=== PATIENT | female | born 1970 | race Caucasian/White ===

== ENCOUNTER → 2016-06-29 | Day surgery (SDC) | payer BC ==
[~2016-06-29] MED LIST: LACTATED RINGER'S 1000 ML INJ 1,000 ML ONE; LIDOCAINE 1%/EPINEPHrine 1:100,000 SOLN 20 ML VIAL ONE; MIDAZOLAM HCL 2 MG/2 ML VIAL ONE; ONDANSETRON HCL 4 MG/2 ML VIAL IV PUSH ONE; PROPOFOL 200 MG/20 ML AMP IV ONE; ceFAZolin 2 GM PREMIX 50 ML ONE
--- NOTE | 2016-06-29 15:35 | TN ---
cc: RONAL CHARLES M.D. DATE OF SURGERY: 06/29/2016 PREOPERATIVE DIAGNOSIS Atypical ductal hyperplasia, right breast. POSTOPERATIVE DIAGNOSIS Atypical ductal hyperplasia, right breast. PROCEDURE Right breast needle-localized lumpectomy, hidden scar technique. SURGEON Dr. Ronal Charles SENIOR INVESTMENT ANALYST Sarahy Hammond, MARYAM ANESTHESIA General. INDICATIONS This very pleasant 45-year-old woman was found to have new microcalcifications on mammography. Stereotactic biopsy demonstrated atypical ductal hyperplasia. Recommendation was made for needle-localized lumpectomy. INTRAOPERATIVE FINDINGS Successful removal of area of concern per Dr. Gomez of radiology. ESTIMATED BLOOD LOSS Less than 5 mL. DESCRIPTION OF PROCEDURE IN DETAIL The patient was identified as Mariia Camarena. Following right breast needle localization, she was taken to the operating room and placed in supine position. Sequential compression devices were placed on bilateral lower extremities. Following induction of adequate general anesthesia with TIVA, the patient's right breast was prepped and draped in the usual sterile fashion with Betadine. A timeout procedure was performed. Following completion of the timeout procedure to everyone's satisfaction within the room, a proposed superior periareolar incision was made with a marking pen and infiltrated with local anesthetic. The incision was carried out with a scalpel and hemostasis controlled with electrocautery. Dissection continued superiorly towards the localization needle using a lighted retractor to facilitate the hidden scar technique. The localization needle was identified within the wound and was divided at the level of skin, brought into the wound. A generous portion of tissue was then from surrounding breast tissue using electrocautery. The specimen was marked with a short stitch superior anterior and a long stitch lateral posterior and sent for imaging and then to pathology. The wound was irrigated copiously with saline. Small bleeding points were controlled with electrocautery. Once the wound was assured to be dry 5 cc of local anesthetic was placed within the wound and the wound was closed in two layers with 3-0 Vicryl and 4-0 Monocryl. Dressings were applied with Dermabond, 4x4 and Tegaderm. The patient tolerated the procedure without apparent complication. Sponge, needle and instrument counts were correct at the end of the case. The surgical procedure was assisted by my nurse practitioner. My CATERING DIRECTOR's presence was necessary throughout the case for assistance and visualization of the hidden scar lumpectomy. My CATERING DIRECTOR was assisting me throughout the duration of this procedure. The skill set of a nurse practitioner was medically necessary to complete the procedure. During the surgical case the surgical technologist was working at the back table and providing appropriate instrumentation to myself and the nurse practitioner who was directly assisting me. MD JANUSZ Puentes/ANJELICA /2:09 PM /3:29 PM
== END | disposition home or self-care (01) ==
LOC: ESDC 09:59
PROVIDERS: ATTEND Surgery Trauma Surgery
DX: N60.91 Unspecified benign mammary dysplasia of right breast (principal)
CPT/HCPCS: 00400; 19125; 88307; J0690; J2250; J2405; J3010; J7120; 88361

== ENCOUNTER 2016-11-05 18:15 | Emergency (ER) | payer BC ==
[~2016-11-05] VITALS: Ht 160 cm; Wt 77.0 kg
[2016-11-05 18:17] VITALS: BP 140/74; PULSE 84; RESP 22; TEMP 97.4; O2SAT 98
--- NOTE | 2016-11-05 18:37 | PD ---
Physical Exam Time Seen by Provider: 18:33 Narrative 45yo F c/o R rib cage pain w/ breathing since 2pm today. Denies fever, cough, hemoptysis. Stabbing pain to R side and radiates to back. Pain is constant and worse w/ deep breath Finished radiation for R breast CA October 15, 2016. Patient seen in triage. Awaiting bed placement. VS reviewed. Data Data Last Documented VS Vital Signs Date Time Temp Pulse Resp B/P Pulse Ox O2 Delivery O2 Flow Rate FiO2 11/05/16 18:17 97.4 84 22 140/74 98 MDM Supervised Visit with ONDINA: Robyn Mckenzie November 05, 2016 18:37
== END 2016-11-05 22:40 | disposition left against medical advice (07) ==
LOC: NED 18:15
DX: R07.81 Pleurodynia (principal)
CPT/HCPCS: 99282

== ENCOUNTER 2017-02-11 01:19 | Inpatient (IN) | payer BC ==
[~2017-02-11] VITALS: Ht 157.5 cm; Wt 72.7 kg
[2017-02-11] VITALS (8 sets, daily range): BP systolic 117–171; BP diastolic 57–87; PULSE 73–100; RESP 16–20; TEMP 96.9–99.1; O2SAT 95–100
[2017-02-11] MEDS ORDERED: SODIUM CHLOR 0.9% 1000 ML INJ 1,000 ML IV SCH ×2 (01:49→03:50)
[2017-02-11] MEDS ORDERED: ONDANSETRON HCL 4 MG/2 ML VIAL IVP ONE (02:00)
[2017-02-11] MEDS ORDERED: MORPHINE SULFATE 4 MG/ML INJ IV PUSH ONE (02:00)
[2017-02-11] MEDS ORDERED: SODIUM CHLORIDE 0.9% FLUSH 10 ML FLUSH IV FLUSH PRN ×3 (02:00→19:15)
[2017-02-11] MEDS ORDERED: KETOROLAC TROMETHAMINE 30 MG/ML (IVP) VIAL IVP ONE (02:00)
--- NOTE | 2017-02-11 02:08 | PD ---
HPI Chief Complaint: Abdominal Pain Time Seen by Provider: 01:49 Travel History International Travel<30 days: No Contact w/Intl Traveler<30days: No Traveled to known affect area: No History of Present Illness HPI The patient is a 46-year-old female who presents to the emergency department for 24 hours of abdominal pain. The patient states abdominal pain started left lower quadrant of the abdomen and then radiated to the suprapubic region yesterday. Patient now notes the pain is diffuse, radiates to the back, is worse with certain positional changes such as sitting upright, as well as moving. She denies any nausea, vomiting, diarrhea, or change in bowel habits. She denies any associated dysuria, frequency, urgency, vaginal discharge, or vaginal bleeding. The patient has a previous history of hysterectomy and appendectomy. She denies any history nephrolithiasis or diverticulitis. She denies any associated fever, chills, or sweats. Symptoms are moderate, worse in certain positional changes, but there are no acute alleviating factors. [facility] Past Medical History Medical History: Denies Significant Hx Tetanus Vaccination: Unknown ?: Not Past Surgical History Surgical History: No Previous Surgery Hysterectomy: Yes Social History Alcohol Use: No Tobacco Use: No Substance Use: No Allergies-Medications (Allergen,Severity, Reaction): Coded Allergies: No Known Allergies (Verified , 02/11/17) Reported Meds & Prescriptions Reported Meds & Active Scripts Active Reported Tamoxifen (Tamoxifen Citrate) 10 Mg Tab 10 Mg PO BID Metformin (Metformin HCl) 500 Mg Tab 500 Mg PO DAILY With a meal Atorvastatin (Atorvastatin Calcium) 20 Mg Tab 20 Mg PO HS Review of Systems Except as stated in HPI: all other systems reviewed are Neg General / Constitutional: No: Fever Cardiovascular: No: Chest Pain or Discomfort Respiratory: No: Shortness of Breath Gastrointestinal: Positive: Abdominal Pain, Loss of Appetite, No: Nausea, Vomiting, Diarrhea, Constipation Genitourinary: No: Urgency, Frequency, Dysuria, Hematuria, Discharge, Vaginal Bleeding Skin: No Rash Physical Exam Narrative GENERAL: Awake, alert, pleasant 46 year-old female who appears her stated age and is in no acute respiratory distress. She does appear moderate discomfort. SKIN: Focused skin assessment warm/dry. HEAD: Atraumatic. Normocephalic. EYES: Pupils equal and round. No scleral icterus. No injection or drainage. ENT: No nasal bleeding or discharge. Mucous membranes pink and moist. NECK: Trachea midline. No JVD. CARDIOVASCULAR: Regular rate and rhythm. No murmur appreciated. RESPIRATORY: No accessory muscle use. Clear to auscultation. Breath sounds equal bilaterally. GASTROINTESTINAL: Abdomen soft, tender palpation left lower quadrant and suprapubic region. Back: No CVA tenderness. MUSCULOSKELETAL: No obvious deformities. No clubbing. No cyanosis. No edema. NEUROLOGICAL: Awake and alert. No obvious cranial nerve deficits. Motor grossly within normal limits. Normal speech. PSYCHIATRIC: Appropriate mood and affect; insight and judgment normal. Data Data Last Documented VS Vital Signs Date Time Temp Pulse Resp B/P (MAP) Pulse Ox O2 Delivery O2 Flow Rate FiO2 02/11/17 02:23 73 16 143/63 (89) 98 Room Air 02/11/17 01:21 98.4 Orders Orders Complete Blood Count With Diff (02/11/17 01:49) Comprehensive Metabolic Panel (02/11/17 01:49) Lipase (02/11/17 01:49) Lactic Acid (02/11/17 01:49) Urinalysis - C+S If Indicated (02/11/17 01:49) Ct Abd/Pel W Iv Contrast(Rout) (02/11/17 01:49) Iv Access Insert/Monitor (02/11/17 01:49) Ecg Monitoring (02/11/17 01:49) Oximetry (02/11/17 01:49) Morphine Inj (Morphine Inj) (02/11/17 02:00) Ondansetron Inj (Zofran Inj) (02/11/17 02:00) Sodium Chlor 0.9% 1000 Ml Inj (Ns 1000 M (02/11/17 01:49) Sodium Chloride 0.9% Flush (Ns Flush) (02/11/17 02:00) Ketorolac Inj (Toradol Inj) (02/11/17 02:00) Iohexol 350 Inj (Omnipaque 350 Inj) (02/11/17 02:52) Labs Laboratory Tests Test 02/11/17 02:00 02/11/17 03:00 White Blood Count 12.4 TH/MM3 Red Blood Count 4.19 MIL/MM3 Hemoglobin 12.7 GM/DL Hematocrit 37.7 % Mean Corpuscular Volume 90.0 FL Mean Corpuscular Hemoglobin 30.3 PG Mean Corpuscular Hemoglobin Concent 33.7 % Red Cell Distribution Width 12.9 % Platelet Count 142 TH/MM3 Mean Platelet Volume 7.1 FL Neutrophils (%) (Auto) 68.7 % Lymphocytes (%) (Auto) 13.7 % Monocytes (%) (Auto) 14.3 % Eosinophils (%) (Auto) 2.6 % Basophils (%) (Auto) 0.7 % Neutrophils # (Auto) 8.5 TH/MM3 Lymphocytes # (Auto) 1.7 TH/MM3 Monocytes # (Auto) 1.8 TH/MM3 Eosinophils # (Auto) 0.3 TH/MM3 Basophils # (Auto) 0.1 TH/MM3 CBC Comment DIFF FINAL Differential Comment Blood Urea Nitrogen 16 MG/DL Creatinine 0.76 MG/DL Random Glucose 95 MG/DL Total Protein 7.0 GM/DL Albumin 3.4 GM/DL Calcium Level 8.6 MG/DL Alkaline Phosphatase 34 U/L Aspartate Amino Transf (AST/SGOT) 14 U/L Alanine Aminotransferase (ALT/SGPT) 24 U/L Total Bilirubin 0.7 MG/DL Sodium Level 141 MEQ/L Potassium Level 4.6 MEQ/L Chloride Level 109 MEQ/L Carbon Dioxide Level 27.4 MEQ/L Anion Gap 5 MEQ/L Estimat Glomerular Filtration Rate 82 ML/MIN Lactic Acid Level 0.9 mmol/L Lipase 191 U/L MDM Medical Decision Making Medical Screen Exam Complete: Yes Emergency Medical Condition: Yes Medical Record Reviewed: Yes Interpretation(s) Laboratory Tests Test 02/11/17 02:00 02/11/17 03:00 White Blood Count 12.4 TH/MM3 Red Blood Count 4.19 MIL/MM3 Hemoglobin 12.7 GM/DL Hematocrit 37.7 % Mean Corpuscular Volume 90.0 FL Mean Corpuscular Hemoglobin 30.3 PG Mean Corpuscular Hemoglobin Concent 33.7 % Red Cell Distribution Width 12.9 % Platelet Count 142 TH/MM3 Mean Platelet Volume 7.1 FL Neutrophils (%) (Auto) 68.7 % Lymphocytes (%) (Auto) 13.7 % Monocytes (%) (Auto) 14.3 % Eosinophils (%) (Auto) 2.6 % Basophils (%) (Auto) 0.7 % Neutrophils # (Auto) 8.5 TH/MM3 Lymphocytes # (Auto) 1.7 TH/MM3 Monocytes # (Auto) 1.8 TH/MM3 Eosinophils # (Auto) 0.3 TH/MM3 Basophils # (Auto) 0.1 TH/MM3 CBC Comment DIFF FINAL Differential Comment Blood Urea Nitrogen 16 MG/DL Creatinine 0.76 MG/DL Random Glucose 95 MG/DL Total Protein 7.0 GM/DL Albumin 3.4 GM/DL Calcium Level 8.6 MG/DL Alkaline Phosphatase 34 U/L Aspartate Amino Transf (AST/SGOT) 14 U/L Alanine Aminotransferase (ALT/SGPT) 24 U/L Total Bilirubin 0.7 MG/DL Sodium Level 141 MEQ/L Potassium Level 4.6 MEQ/L Chloride Level 109 MEQ/L Carbon Dioxide Level 27.4 MEQ/L Anion Gap 5 MEQ/L Estimat Glomerular Filtration Rate 82 ML/MIN Lactic Acid Level 0.9 mmol/L Lipase 191 U/L Last Impressions Abdomen/Pelvis CT 02/11/17 0149 Signed Impressions: Service Date/Time: , February 11, 2017 02:48 - CONCLUSION: 1. 5.1 cm solid mass in the central pelvis which is separate from the uterus and ovaries. There is also loculated fluid in the pelvis posterior to this mass as measured above with some free fluid and right ovarian cyst. Reportedly there is a history of metastatic breast carcinoma. Small amount of free fluid also present around the spleen and left paracolic gutter. 2. There is a 7.1 x 5.3 cm area of solid tissue posterior to the bladder which could represent the uterus although there is a history of hysterectomy and this could represent an additional pelvic mass suspicious for neoplasm. 1. Guillermo Del Rio MD Differential Diagnosis Differential diagnosis includes diverticulitis, pancreatitis, nephrolithiasis, pyelonephritis, small bowel obstruction, perforated viscus, gastritis. Narrative Course IV was established, labs are drawn and sent, and the patient was placed on cardiac telemetry monitoring and continuous pulse oximetry monitoring. 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 UA was sent to lab. CT of the abdomen and pelvis was ordered. The patient's lactic acid is unremarkable. Labs are mostly unremarkable. Unfortunately the patient's CT the abdomen and pelvis reveals a 5.1 cm solid mass in the central pelvis which is separate from the uterus and ovaries, there is also loculated fluid in the pelvis posterior to this mass is measured above with some free fluid and right ovarian cyst. Small amount of free fluid also present around the spleen and left paracolic gutter. There is a 7.1 x 5.3 cm area of solid tissue posterior to the bladder which could represent the uterus although there is a history of hysterectomy and this could represent an additional pelvic mass suspicious for neoplasm. The patient was reevaluated at 3:40 AM, her pain had improved, but was still present. She declined further pain medications. I had a discussion with the patient regarding her CT findings, after discussion it was agreed she would be 23 hour observation. The patient may benefit from interventional radiology biopsy and/or ultrasound of the pelvis as well as evaluation by her oncologist Dr. Childs, and possible evaluation by Dr. Sierra if biopsy results are positive. Physician Communication Physician Communication I discussed the patient with Eduardo ZALDIVAR who agrees with admission to Dr. Bloom. Diagnosis Primary Impression: Pelvic mass Additional Impression: Pelvic pain in female Admitting Information Admitting Physician Requests: Observation Condition: Stable Omer Clark MD Feb 11, 2017 02:08
[2017-02-11 02:12] LABS: AUTOMATED NEUTROPHIL # 8.5 TH/MM3 (1.8-7.7); BASOPHIL # 0.1 TH/MM3 (0-0.2); BASOPHIL % 0.7 % (0.0-2.0); EOSINOPHIL # 0.3 TH/MM3 (0-0.4); EOSINOPHIL % 2.6 % (0.0-4.0); HEMATOCRIT 37.7 % (35.0-46.0); HEMO FLAGS DIFF FINAL; LYMPH % 13.7 % (9.0-44.0); LYMPHOCYTE # 1.7 TH/MM3 (1.0-4.8); MEAN CORPUSCULAR HEMOGLOBIN 30.3 PG (27.0-34.0); MEAN CORPUSCULAR HGB CONC 33.7 % (32.0-36.0); MONO % 14.3 % (0.0-8.0); NEUT % 68.7 % (16.0-70.0); PLATELET COUNT 142 TH/MM3 (150-450); RED BLOOD COUNT 4.19 MIL/MM3 (4.00-5.30); RED CELL DISTRIBUTION WIDTH 12.9 % (11.6-17.2); WHITE BLOOD COUNT 12.4 TH/MM3 (4.0-11.0)
[2017-02-11] MEDS ORDERED: ATOR20TA15 PO (02:29)
[2017-02-11] MEDS ORDERED: TAMO10TA6 PO (02:29)
[2017-02-11] MEDS ORDERED: METF500T PO (02:29)
[2017-02-11 02:43] LABS: ALT (GPT) 24 U/L (10-53); ANION GAP 5 MEQ/L (5-15); AST (GOT) 14 U/L (15-37); BICARBONATE 27.4 MEQ/L (21.0-32.0); BLOOD UREA NITROGEN 16 MG/DL (7-18); CHLORIDE 109 MEQ/L (98-107); GLOMERULAR FILTRATION RATE 82 ML/MIN (>89); POTASSIUM 4.6 MEQ/L (3.5-5.1); SODIUM (NA) 141 MEQ/L (136-145)
[2017-02-11 02:45] LABS: ALKALINE PHOSPHATASE 34 U/L (45-117); TOTAL BILIRUBIN ADULT 0.7 MG/DL (0.2-1.0)
[2017-02-11] MEDS ORDERED: IOHEXOL 350 MG/ML 10 ML VIAL (for RAD DIAG) IVCONTRAST ONE (02:52)
[2017-02-11 03:17] LABS: BACTERIA, URINE RARE /hpf; BLOOD, URINE NEG (NEG); GLUCOSE,URINE NEG (NEG); HYALINE CAST, URINE 2 /lpf (RARE); KETONE, URINE NEG (NEG); MUCUS URINE FEW /lpf (OCC); NITRITE,URINE NEG (NEG); PH, URINE 5.5 (5.0-8.5); RENAL EPITHELIAL CELLS <1 /hpf; SQUAMOUS EPITHELIAL CELL URINE 2 /hpf (0-5); URINE COLOR LIGHT-YELLOW (YELLW/STRAW)
--- NOTE | 2017-02-11 03:29 | RADRPT ---
EXAM DATE/TIME: 02/11/2017 02:48 [facility] COMPARISON: No previous studies available for comparison. INDICATIONS : Bilateral lower quadrant pain for one day. IV CONTRAST: 96 cc Omnipaque 350 (iohexol) IV ORAL CONTRAST: No oral contrast ingested. RADIATION DOSE: 7.06 CTDIvol (mGy) MEDICAL HISTORY : Metastatic, breast. SURGICAL HISTORY : Hysterectomy. ENCOUNTER: Initial ACUITY: 1 day PAIN SCALE: 8/10 LOCATION: Bilateral lower quadrant TECHNIQUE: Volumetric scanning of the abdomen and pelvis was performed. Using automated exposure control and ad justment of the mA and/or kV according to patient size, radiation dose was kept as low as reasonably achievable to obtain optimal diagnostic quality images. DICOM format image data is available electro nically for review and comparison. FINDINGS: Mild parenchymal opacity right middle lobe and left lower lobe may represent scarring or atelectasis. No acute findings in the liver, spleen, adrenals, kidneys or pancreas. No calcified gallstones. There is a small amount of free fluid around the spleen. There is also some free fluid in the left pa racolic gutter and a small amount free fluid in the pelvis. There is a 5.1 cm solid mass in the central pelvis. There is bilobed loculated fluid posterior to thi s pelvic mass measuring about 8.7 x 4.2 cm. 3 cm right ovarian cyst present. Left ovary is partially calcified or enhancing. Soft tissue posterior to the bladder measures 7.1 x 5.3 cm. This could be [place] jeff but there is a reported history of hysterectomy making this suspicious for an additional pelvic m ass. CONCLUSION: 1. 5.1 cm solid mass in the central pelvis which is separate from the uterus and ovaries. There is al so loculated fluid in the pelvis posterior to this mass as measured above with some free fluid and ri ght ovarian cyst. Reportedly there is a history of metastatic breast carcinoma. Small amount of free fluid also present around the spleen and left paracolic gutter. 2. There is a 7.1 x 5.3 cm area of solid tissue posterior to the bladder which could represent the ut erus although there is a history of hysterectomy and this could represent an additional pelvic mass s uspicious for neoplasm. 1. Guillermo Del Rio MD on February 11, 2017 at 3:15 Board Certified Radiologist. This report was verified electronically.
[2017-02-11 03:46] LABS: COMMENT (UR) CULT NOT INDICATED; CULTURE IF INDICATED CULT NOT INDICATED
[2017-02-11] MEDS ORDERED: ACETAMINOPHEN 325 MG TAB PO PRN (04:00)
[2017-02-11] MEDS ORDERED: MAGNESIUM HYDROXIDE SUSP 30 ML CUP PO PRN (04:00)
[2017-02-11] MEDS ORDERED: SENNOSIDES 8.6 MG TAB PO PRN (04:00)
[2017-02-11] MEDS ORDERED: MORPHINE SULFATE 8 MG/ML INJ IV PUSH PRN (04:00)
[2017-02-11] MEDS ORDERED: ONDANSETRON HCL 4 MG/2 ML VIAL IVP PRN ×2 (04:00→19:15)
[2017-02-11] MEDS ORDERED: MORPHINE SULFATE 4 MG/ML INJ IV PUSH PRN (04:00)
[2017-02-11] MEDS ORDERED: NALOXONE HCL 0.4 MG/ML AMP IV PRN (04:00)
[2017-02-11] MEDS ORDERED: HEPARIN SODIUM - SQ 10,000 UNITS/ML VIAL SQ SCH (09:00)
[2017-02-11] MEDS ORDERED: DEXTROSE 50% IN WATER 50 ML VIAL(D50) IV PRN (09:00)
[2017-02-11] MEDS ORDERED: GLUCAGON 1 MG/ML VIAL OTHER PRN (09:00)
[2017-02-11] MEDS ORDERED: SODIUM CHLORIDE 0.9% FLUSH 10 ML FLUSH IV FLUSH SCH (09:00)
[2017-02-11] MEDS ORDERED: INSULIN ASPART SUPPLEMENTAL SCALE SQ SCH (11:00)
[2017-02-11] MEDS ORDERED: ONDANSETRON HCL 4 MG/2 ML VIAL IV PUSH ONE (12:00)
[2017-02-11] MEDS ORDERED: PROPOFOL 200 MG/20 ML AMP IV ONE (12:00)
[2017-02-11] MEDS ORDERED: NEOSTIGMINE 3 MG/3 ML SYR IV ONE (12:00)
[2017-02-11] MEDS ORDERED: PHENYLEPH/NS 1000 MCG/10 ML SYR IV ONE (12:00)
[2017-02-11] MEDS ORDERED: LACTATED RINGER'S 1000 ML INJ 1,000 ML IV ONE (12:00)
[2017-02-11] MEDS ORDERED: ePHEDrine/NS 25 MG/5 ML SYR IV ONE (12:00)
--- NOTE | 2017-02-11 12:37 | HHI.HP ---
HPI Service [facility] Primary Care Physician Gabriela Fenton D.O. 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 Patient presented to the emergency room for evaluation of abdominal pain. Patient indicates that the pain started about 2 nights ago, it woke her from sleep. Pain is located to the lower abdomen and radiates to the back it is a 10 obtained. At times it comes in waves and increases with changes in position. She denies any nausea, no vomiting, no diarrhea. Has not had a bowel movement in 2 days but denies any symptoms of constipation. When she urinates she feels pelvic pressure. No recent fever, no chills. Denies any vaginal discharge. She does have prior history of Assisted hysterectomy in 2006. In the emergency room, patient was evaluated. Laboratory workup was essentially unremarkable. A CT of the abdomen and pelvis was completed that showed a 5.1 cm solid mass in the central pelvis which is separate from the uterus and ovaries. There is also loculated fluid in the pelvis posterior to this mass as measured above with some free fluid in right ovarian cyst. There is a 7.1 x 5.3. Solid tissue posterior to the bladder which could represent a uterus although there is a history of hysterectomy and this could represent an additional pelvic mass is patient is of neoplasm. She was recently diagnosed with right breast cancer April 2016 and underwent a lumpectomy per . She has just completed radiation and has been started on tamoxifen. Dr. Benjamin has been consulted and has evaluated patient. He requested consultation with Dr. Sierra and has ordered cancer markers. Patient remains very painful with minimal palpation. Patient is admitted for further evaluation and treatment. Review of Systems Constitutional: DENIES: Diaphoretic episodes, Fatigue, Fever, Weight gain, Weight loss, Chills, Dizziness, Change in appetite, Night Sweats Endocrine: DENIES: Abnorml menstrual pattern, Heat/cold intolerance, Polydipsia , Polyuria, Polyphagia Eyes: DENIES: Blurred vision, Diplopia, Eye inflammation, Eye pain, Vision loss , Photosensitivity, Double Vision Ears, nose, mouth, throat: DENIES: Tinnitus, Hearing loss, Vertigo, Nasal discharge, Oral lesions, Throat pain, Hoarseness, Ear Pain, Running Nose, Epistaxis, Sinus Pain, Toothache, Odynophagia Respiratory: DENIES: Apneas, Cough, Snoring, Wheezing, Hemoptysis, Sputum production, Shortness of breath Cardiovascular: DENIES: Chest pain, Palpitations, Syncope, Dyspnea on Exertion , PND, Lower Extremity Edema, Orthopnea, Claudication Gastrointestinal: COMPLAINS OF: Abdominal pain, DENIES: Black stools, Bloody stools, Constipation, Diarrhea, Nausea, Vomiting, Difficulty Swallowing, Anorexia Genitourinary: DENIES: Abnormal vaginal bleeding, Dysmenorrhea, Dyspareunia, Sexual dysfunction, Urinary frequency, Urinary incontinence, Urgency, Hematuria , Dysuria, Nocturia, Vaginal discharge Musculoskeletal: DENIES: Joint pain, Muscle aches, Stiffness, Joint Swelling, Back pain, Neck pain Integumentary: DENIES: Abnormal pigmentation, Pruritus, Rash, Nail changes, Breast masses, Breast skin changes, Nipple discharge Hematologic/lymphatic: DENIES: Bruising, Lymphadenopathy Immunologic/allergic: DENIES: Eczema, Urticaria Neurologic: DENIES: Abnormal gait, Headache, Localized weakness, Paresthesias, Seizures, Speech Problems, Tremor, Poor Balance Psychiatric: DENIES: Anxiety, Confusion, Mood changes, Depression, Hallucinations, Agitation, Suicidal Ideation, Homicidal Ideation, Delusions Past Family Social History Past Medical History Right breast cancer, noninvasive high-grade ductal carcinoma in situ, ER and [place] positive, underwent right breast lumpectomy, completed radiation therapy and is currently on tamoxifen. Type 2 diabetes Hyperlipidemia Menorrhagia Past Surgical History Lap-assisted hysterectomy September 2006 Right breast lumpectomy 2015 1993 Appendectomy 1987 Breast biopsy 2015 Reported Medications Reported Meds & Active Scripts Active Reported Tamoxifen (Tamoxifen Citrate) 10 Mg Tab 10 Mg PO BID Metformin (Metformin HCl) 500 Mg Tab 500 Mg PO DAILY With a meal Atorvastatin (Atorvastatin Calcium) 20 Mg Tab 20 Mg PO HS Allergies: Coded Allergies: No Known Allergies (Verified , 02/11/17) Active Ordered Medications Inpatient Medications Acetaminophen (Tylenol) 650 mg Q4H PRN PO TEMP > 100.4; Start 02/11/17 at 04:00 Dextrose (D50w (Vial) Inj) 50 ml UNSCH PRN IV HYPOGLYCEMIA-SEE COMMENTS; Start 02/11/17 at 09:00 Glucagon (Glucagon Inj) 1 mg UNSCH PRN OTHER HYPOGLYCEMIA-SEE COMMENTS; Start 02/11/17 at 09:00 Heparin Sodium (Porcine) (Heparin Inj) 5,000 units Q12HR SQ ; Start 02/11/17 at 09:00; Status Future hold Insulin Aspart (NovoLOG SUPPLEMENTAL SCALE) 1 ACHS SLIDING SCALE SQ ; Start at 11:00 Ketorolac Tromethamine (Toradol Inj) 30 mg ONCE ONCE IVP Last administered on 02/11/17 02:18; Start 02/11/17 at 02:00; Stop 02/11/17 at 02:01; Status DC Magnesium Hydroxide (Milk Of Magnbayron Liq) 30 ml Q12H PRN PO MILD - MODERATE CONSTIPATION; Start 02/11/17 at 04:00 Morphine Sulfate (Morphine Inj) 5 mg Q3H PRN IV PUSH PAIN SCALE 6 TO 10 Last administered on 02/11/17 08:53; Start 02/11/17 at 04:00 Naloxone HCl (Narcan Inj) 0.4 mg UNSCH PRN IV SEE LABEL COMMENTS; Start at 04:00 Ondansetron HCl (Zofran Inj) 4 mg Q6H PRN IVP NAUSEA OR VOMITING; Start at 04:00 Sennosides (Senokot) 17.2 mg Q12H PRN PO MODERATE - SEVERE CONSTIPATION; Start 02/11/17 at 04:00 Sodium Chloride (NS Flush) 2 ml BID IV FLUSH ; Start 02/11/17 at 09:00 Family History Mother and father are both alive and well. No history of cancer on both sides She is an only child Social History Patient is , has children. 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 Occasionally smokes cigarettes, no alcohol, no substance abuse. Physical Exam Vital Signs Vital Signs Date Time Temp Pulse Resp B/P (MAP) Pulse Ox O2 Delivery O2 Flow Rate FiO2 02/11/17 11:18 78 16 138/63 (88) 97 02/11/17 09:00 15 02/11/17 08:00 80 16 137/70 (92) 96 Room Air 02/11/17 03:42 88 20 171/87 (115) 95 02/11/17 02:23 73 16 143/63 (89) 98 Room Air 02/11/17 02:22 16 98 Room Air 02/11/17 01:21 98.4 100 16 135/73 (93) 100 Room Air Physical Exam GENERAL: This is a well-nourished, well-developed patient, in no apparent distress. SKIN: No rashes, ecchymoses or lesions. Cool and dry. HEAD: Atraumatic. Normocephalic. No temporal or scalp tenderness. EYES: Pupils equal round and reactive. Extraocular motions intact. No scleral icterus. No injection or drainage. ENT: Nose without bleeding, purulent drainage or septal hematoma. Throat without erythema, tonsillar hypertrophy or exudate. Uvula midline. Airway patent. NECK: Trachea midline. No JVD or lymphadenopathy. Supple, nontender, no meningeal signs. CARDIOVASCULAR: Regular rate and rhythm without murmurs, gallops, or rubs. RESPIRATORY: Clear to auscultation. Breath sounds equal bilaterally. No wheezes , rales, or rhonchi. GASTROINTESTINAL: Abdomen is flat, exquisitely tender to palpation over pelvis area, nondistended. Bowel sounds normoactive 4. Voluntary guarding MUSCULOSKELETAL: Extremities without clubbing, cyanosis, or edema. No joint tenderness, effusion, or edema noted. No calf tenderness. Negative Homans sign bilaterally. NEUROLOGICAL: Awake, alert oriented 3. Tearful, very anxious, in obvious pain. Laboratory Laboratory Tests Test 02/11/17 02:00 02/11/17 03:00 02/11/17 11:07 White Blood Count 12.4 Red Blood Count 4.19 Hemoglobin 12.7 Hematocrit 37.7 Mean Corpuscular Volume 90.0 Mean Corpuscular Hemoglobin 30.3 Mean Corpuscular Hemoglobin Concent 33.7 Red Cell Distribution Width 12.9 Platelet Count 142 Mean Platelet Volume 7.1 Neutrophils (%) (Auto) 68.7 Lymphocytes (%) (Auto) 13.7 Monocytes (%) (Auto) 14.3 Eosinophils (%) (Auto) 2.6 Basophils (%) (Auto) 0.7 Neutrophils # (Auto) 8.5 Lymphocytes # (Auto) 1.7 Monocytes # (Auto) 1.8 Eosinophils # (Auto) 0.3 Basophils # (Auto) 0.1 CBC Comment DIFF FINAL Differential Comment Blood Urea Nitrogen 16 Creatinine 0.76 Random Glucose 95 Total Protein 7.0 Albumin 3.4 Calcium Level 8.6 Alkaline Phosphatase 34 Aspartate Amino Transf (AST/SGOT) 14 Alanine Aminotransferase (ALT/SGPT) 24 Total Bilirubin 0.7 Sodium Level 141 Potassium Level 4.6 Chloride Level 109 Carbon Dioxide Level 27.4 Anion Gap 5 Estimat Glomerular Filtration Rate 82 Lactic Acid Level 0.9 Lipase 191 Urine Color LIGHT-YELLOW Urine Turbidity CLEAR Urine pH 5.5 Urine Specific [place] 1.017 Urine Protein NEG Urine Glucose (UA) NEG Urine Ketones NEG Urine Occult Blood NEG Urine Nitrite NEG Urine Bilirubin NEG Urine Urobilinogen LESS THAN 2.0 Urine Leukocyte Esterase TRACE Urine RBC 1 Urine WBC 1 Urine Squamous Epithelial Cells 2 Urine Renal Epithelial Cells <1 Urine Bacteria RARE Urine Hyaline Casts 2 Urine Mucus FEW Microscopic Urinalysis Comment CULT NOT INDICATED Carcinoembryonic Antigen 0.8 Result Diagram: 02/11/1719902/11/17199 Imaging Last Impressions Abdomen/Pelvis CT 02/11/17 0149 Signed Impressions: Service Date/Time: , February 11, 2017 02:48 - CONCLUSION: 1. 5.1 cm solid mass in the central pelvis which is separate from the uterus and ovaries. There is also loculated fluid in the pelvis posterior to this mass as measured above with some free fluid and right ovarian cyst. Reportedly there is a history of metastatic breast carcinoma. Small amount of free fluid also present around the spleen and left paracolic gutter. 2. There is a 7.1 x 5.3 cm area of solid tissue posterior to the bladder which could represent the uterus although there is a history of hysterectomy and this could represent an additional pelvic mass suspicious for neoplasm. 1. Guillermo Del Rio MD Caprini VTE Risk Assessment Caprini VTE Risk Assessment: No/Low Risk (score <= 1) Caprini Risk Assessment Model Point Value = 1 Point Value = 2 Point Value = 3 Point Value = 5 Age 41-60 Minor surgery BMI > 25 kg/m2 Swollen legs Varicose veins or History of unexplained or recurrent spontaneous Oral contraceptives or hormone replacement Sepsis (< 1 month) Serious lung disease, including pneumonia (< 1 month) Abnormal pulmonary function Acute myocardial infarction Congestive heart failure (< 1 month) History of inflammatory bowel disease Medical patient at bed rest Age 61-74 Arthroscopic surgery Major open surgery (> 45 min) Laparoscopic surgery (> 45 min) Malignancy Confined to bed (> 72 hours) Immobilizing plaster cast Central venous access Age >= 75 History of VTE Family history of VTE Factor V Leiden Prothrombin [id number] Lupus anticoagulant Anticardiolipin antibodies Elevated serum homocysteine Heparin-induced thrombocytopenia Other congenital or acquired thrombophilia Stroke (< 1 month) Elective arthroplasty Hip, pelvis, or leg fracture Acute spinal cord injury (< 1 month) Prophylaxis Regimen Total Risk Factor Score Risk Level Prophylaxis Regimen 0-1 Low Early ambulation 2 Moderate Order ONE of the following: *Sequential Compression Device (SCD) *Heparin 5000 units SQ BID 3-4 Higher Order ONE of the following medications: *Heparin 5000 units SQ TID *Enoxaparin/Lovenox 40 mg SQ daily (WT < 150 kg, CrCl > 30 mL/min) *Enoxaparin/Lovenox 30 mg SQ daily (WT < 150 kg, CrCl > 10-29 mL/min) *Enoxaparin/Lovenox 30 mg SQ BID (WT < 150 kg, CrCl > 30 mL/min) AND/OR *Sequential Compression Device (SCD) 5 or more Highest Order ONE of the following medications: *Heparin 5000 units SQ TID (Preferred with Epidurals) *Enoxaparin/Lovenox 40 mg SQ daily (WT < 150 kg, CrCl > 30 mL/min) *Enoxaparin/Lovenox 30 mg SQ daily (WT < 150 kg, CrCl > 10-29 mL/min) *Enoxaparin/Lovenox 30 mg SQ BID (WT < 150 kg, CrCl > 30 mL/min) AND *Sequential Compression Device (SCD) Assessment and Plan Problem List: (1) Pelvic mass ICD Codes: R19.00 - Intra-abdominal and pelvic swelling, mass and lump, unspecified site Status: Acute (2) Pelvic pain in female ICD Codes: R10.2 - Pelvic and perineal pain Status: Acute (3) Hyperlipidemia ICD Codes: E78.5 - Hyperlipidemia, unspecified Status: Chronic (4) Diabetes 1.5, managed as type 2 ICD Codes: E10.9 - Type 1 diabetes mellitus without complications Status: Chronic (5) Breast cancer, right ICD Codes: C50.911 - Malignant neoplasm of unspecified site of right female breast Status: Acute (6) History of lumpectomy of right breast ICD Codes: Z90.11 - Acquired absence of right breast and nipple Status: Chronic Assessment and Plan Admit to Dr. Bloom 46-year-old white female admitted with abdominal pain, CT of the abdomen and pelvis showing 5.1 cm solid mass in the central pelvis separate from uterus and ovaries, loculated fluid in the pelvis posterior to this mass, free fluid in right ovarian cyst, 7.1 x 5.3 cm area of solid tissue posterior to the bladder which could represent the uterus. -Continue IV fluids -Continue pain management -Dr. Sierra has been consulted -Appreciate Dr. Benjamin's input, cancer markers have been ordered, we will f/u results -Keep patient nothing by mouth for now. Right breast cancer, underwent lumpectomy. Completed radiation September 2016 and is currently on tamoxifen -Oncology consultation Type 2 diabetes -Accu-Cheks before meals and at bedtime with insulin therapy Hyperlipidemia, stable -Continue home medications when patient able to take by mouth Home medications reviewed, initiated as indicated SCDs for DVT prophylaxis Plan of care has been discussed with the patient, attending and registered nurse. Further management of the patient will be dependent on the hospital course This patient was seen by myself and Dr. Bloom, this H&P is written on his behalf Problem Qualifiers (1) Hyperlipidemia: Qualified Codes: E78.5 - Hyperlipidemia, unspecified (2) Breast cancer, right: Qualified Codes: C50.911 - Malignant neoplasm of unspecified site of right female breast; Z17.0 - Estrogen receptor positive status [ER+] Ambreen Garcia Feb 11, 2017 12:37
--- NOTE | 2017-02-11 13:13 | MB ---
cc: ESTEBAN VARELA M.D., BRAD A. MD PETERSON, ANWER, MUHAMMED N. MD MOLPUS,BHAVYA CHARLES,RONAL Gregory M.D. DATE OF CONSULTATION 02/11/2017 REASON FOR CONSULTATION 1. Abdominopelvic pain. 2. Pelvic mass (or pelvic masses). PHYSICIAN REQUESTING CONSULT Dr. Omar Bloom HISTORY OF PRESENT ILLNESS This is a 46-year-old female who reports sudden onset of lower mid-abdominal pelvic pain when she went to urinate in the middle of the night. She does describe any burning on urination. No malodor, no bleeding and she was feeling well prior to that. She reports taking some Motrin and going back to bed but when she woke up in the morning her pain had not improved and was fairly intense in nature and she presented to the emergency room. OBJECTIVE FINDINGS Thus far includes CT of the abdomen and pelvis which shows a small amount of free fluid in the peritoneal cavity. There is a 5-cm solid mass in the central pelvis and there are either multiple cystic masses or multiloculated cystic changes in the pelvis in the region of the ovaries. By history she had a supracervical hysterectomy by Dr. Bridgette Weller in 2006 for fibroids and leiomyomas. LABORATORY DATA White count 12.4, hemoglobin 12.7, hematocrit 37.7, platelets 142. Electrolytes: Relatively normal potassium at 4.6, chloride slightly elevated at 109, BUN and creatinine 16 and 0.76, glucose 95. Transaminases and liver function are not elevated. The urinalysis was relatively clear. On further discussion she states that she has been regular for follow-up for Pap smears every other year. She used to see Dr. Weller, now she sees someone else in that office, reports that her Pap smear last she was normal. Furthermore she denies any bleeding, spotting or blood-tinged discharge. She is seen now in consultation for further evaluation and recommendations regarding these findings. PAST MEDICAL HISTORY, PAST SURGICAL HISTORY 1. Notable for noninvasive breast cancer treated with lumpectomy, focal breast radiation and now she is on tamoxifen. 2. She had the supracervical hysterectomy as noted above in 2006. 3. She had an appendectomy I believe in 2007. 4. A in 1993. 5. The breast cancer diagnosis was earlier this year in 2017. FAMILY HISTORY Noncontributory. FAMILY HISTORY There is no known family history of cancer. REVIEW OF SYSTEMS As per History of Present Illness. Denies any bright red blood or melanotic stool change. No change in her bowel function. No hematuria. No cough, hemoptysis, shortness of breath. No nausea or vomiting. No muscle aches, fatigue or febrile illness. ALLERGIES LATEX. MEDICATIONS 1. Tamoxifen. 2. Metformin. 3. Atorvastatin. FAMILY HISTORY with children. SOCIAL HISTORY Denies any tobacco use. PHYSICAL EXAMINATION VITAL SIGNS: She is afebrile, temperature of 98.4, pulse 73-88, respirations 16-20, blood pressure 137-171/63-87, O2 saturations greater than or equal to 95%. GENERAL: She appears uncomfortable but in no acute distress. LYMPH NODE SURVEY: Negative. LUNGS: Clear to auscultation bilaterally. CARDIOVASCULAR: Normal S1-S2, regular rate and rhythm. BACK: No CVA tenderness or spinal point tenderness. SKIN: Normal turgor, normal tone and color. ABDOMEN: Mild discomfort in the right and left upper quadrants, uncomfortable on palpation in the mid-lower abdomen, upper pelvis above the symphysis pubis. This exam is uncomfortable. We agreed to defer pelvic exam at this time. EXTREMITIES: Nontender. Neurovascularly intact. No palpable cords. DISCUSSION Time was spent in discussion with her, reviewing the findings in her case to date. I explained the reason for consultation. 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 She does not have a history of metastatic breast cancer. Whether not the changes in the pelvis represent neoplastic change are uncertain. The acute onset and symptoms raise the possibility of something suddenly happening that is different to the ovaries or cyst on the ovaries such as ovarian torsion. I explained where that represents twisting of the blood supply that can cause acute onset of pain. Other possibilities would be cyst rupture or bleeding into the cyst. There is some fluid in the peritoneal cavity. Infections are another possibility, all of which can potentially cause symptoms. At some point we may well recommend a pelvic exam but we can get additional information from pelvic ultrasound and she is in agreement. Although we state that it is likely be uncomfortable, she is in agreement for pelvic ultrasound, and I will ask them to get one because it will help better clarify the anatomy of what is believed to be the residual cervix as a solid component in the central pelvis. As her history is status post supracervical hysterectomy, there may be a mass or a leiomyoma in that cervix or it may be prominent if a small portion of the lower uterine segment remained benign after the hysterectomy. Furthermore it will help evaluate the anatomy of the ovaries and I have requested Doppler studies to assess for blood flow to the ovaries to determine if there is radiographic evidence to suggest torsion. She understands that based on these findings, intervention could be decided whether that be biopsy for concern about neoplasm or antibiotics for concern of infection or possibly surgery for concern about torsion and/or for consideration of resection of the mass but additional information is needed to clarify. Discussion ensued. Questions were answered. She was grateful for the time spent in discussion. ASSESSMENT 1. Lower abdominal pain and pelvic pain, acute onset. 2. Status post supracervical hysterectomy with a central solid mass in the pelvis, may represent residual cervix, possibly other. 3. Cystic changes in one or both ovaries or in the region of one or both ovaries. 4. History of local noninvasive breast cancer. No history of metastatic breast cancer. PLAN 1. Recommend pelvic ultrasound to get a better understanding of the anatomy of the pelvis with Doppler studies to evaluate for the presence or absence of normal blood flow given concern about possible ovarian torsion. 2. Continue present management, supportive care. Maintain her n.p.o. status. Thank you for the consultation. MD AUSTIN Barber/BLANK /11:54 AM /12:45 PM
[2017-02-11 14:24] LABS: BETA HCG QUANT LESS THAN 1 MIU/ML (0-5)
[2017-02-11] MEDS ORDERED: ACETAMINOPHEN 1000 MG/100 ML 100 ML IV ONE (14:38)
[2017-02-11] MEDS ORDERED: ceFAZolin 2 GM PREMIX 50 ML ONE (14:43)
[2017-02-11] MEDS ORDERED: fentaNYL CITRATE 250 MCG/5 ML AMP ONE ×2 (14:48→14:55)
[2017-02-11] MEDS ORDERED: MIDAZOLAM HCL 2 MG/2 ML VIAL ONE (14:55)
--- NOTE | 2017-02-11 16:24 | RADRPT ---
EXAM DATE/TIME: 02/11/2017 11:49 [facility] COMPARISON: CT ABDOMEN & PELVIS W CONTRAST, February 11, 2017, 2:48. INDICATIONS : Pelvic pain, abnormal CT. MEDICAL HISTORY : Right breast cancer. Chemotherapy. Radiation. SURGICAL HISTORY : Appendectomy. Hysterectomy. ENCOUNTER: Initial ACUITY: 1 day PAIN SCORE: 5/10 LOCATION: Bilateral pelvis MEASUREMENTS: UTERUS: Surgically absent RIGHT OVARY: 4.0 x 2.6 x 2.4 cm LEFT OVARY: Non visualized FINDINGS: There is a solid mass measures 7.9 cm in size in midline with slight fluid in the cul-de-sac. There a re cystic masses that appear to be bilateral the largest one measures in midline almost 8.7 x 4.8 cm in size probably contiguous with the left ovary. There is a small cyst in the right ovary measures 2 cm in size. There is a separate area of prominent soft tissue density may be the patient's cervix in this patient has had a supracervical hysterectomy. CONCLUSION: Soft tissue mass in addition to septated cystic masses extending from midline into the left adnexa co uld all be related to the patient's left ovary. Flow is documented within the right ovary, however no rmal left ovarian tissue is not visualized and possibility of left ovary filled with cystic and solid masses and possibly torsion should also be entertained. Brennan Berrios MD on February 11, 2017 at 13:50 Board Certified Radiologist. This report was verified electronically.
[2017-02-11] MEDS ORDERED: oxyCODONE/ACETAMINOPHEN 5 MG/325 MG TAB PO PRN (19:15)
[2017-02-11] MEDS ORDERED: diphenhydrAMINE HCL 25 MG CAP PO PRN (19:15)
[2017-02-11] MEDS ORDERED: LORazepam 0.5 MG TAB PO PRN (19:15)
[2017-02-11] MEDS ORDERED: ATORVASTATIN 20 MG TAB PO SCH (21:00)
[2017-02-11] MEDS ORDERED: DO NOT ADM ANY ANTICOAGULANT DRUGS PRN (21:00)
[2017-02-11] MEDS: INSULIN NovoLIN REGULAR SUPPLEMENTAL SCALE SQ SCH (21:00)
[2017-02-11] MEDS: TAMOXIFEN CITRATE 10 MG TAB PO SCH (21:44)
[2017-02-11] MEDS: SODIUM CHLORIDE 0.9% FLUSH 10 ML FLUSH IV FLUSH SCH (21:45)
[2017-02-11] MEDS: D5-1/2 NS + KCL 20 MEQ INJ 1,000 ML IV SCH (21:46)
[2017-02-11] MEDS: KETOROLAC TROMETHAMINE 30 MG/ML (IVP) VIAL IVP SCH (21:49)
[2017-02-12] VITALS: BP 117/64; PULSE 87; RESP 18; TEMP 97; O2SAT 100
[2017-02-12 04:00] VITALS: BP 118/67; PULSE 85; RESP 18; TEMP 97.8; O2SAT 100
[2017-02-12] MEDS: KETOROLAC TROMETHAMINE 30 MG/ML (IVP) VIAL IVP SCH ×2 (04:14→08:45)
[2017-02-12] MEDS: INSULIN NovoLIN REGULAR SUPPLEMENTAL SCALE SQ SCH ×2 (06:35→11:00)
[2017-02-12] MEDS ORDERED: OXYC1TAB63 PO (06:57)
--- NOTE | 2017-02-12 07:25 | MB ---
cc: ESTEBAN VARELA M.D. DATE OF CONSULTATION 02/11/2017 REASON FOR CONSULTATION Consult requested by hospitalist for evaluation of pelvic mass. HISTORY OF PRESENT ILLNESS Mariia is a pleasant 46-year-old female. She was diagnosed with noninvasive right breast cancer in June of this year. She had a screening mammogram in April of last year which showed a calcification in the right upper outer quadrant. The diagnostic mammogram confirmed the microcalcification in the right upper outer quadrant. There were no masses noted. Biopsy showed atypical ductal hyperplasia. On June 29, she underwent lumpectomy which showed a 5 mm high-grade ductal carcinoma in situ with negative margins. ER 11% positive, MD 8% positive. She has a stage zero right breast cancer. Post surgery she had MRI which showed surgical changes. She was referred to me in July of this year and I started her on prophylactic tamoxifen. The patient subsequently had radiation therapy which she completed on October 15. The patient has been tolerating the tamoxifen quite well. There is no evidence of metastatic breast cancer noted. The radiologist report on the CT scan is not correct that the patient has a history of metastatic breast cancer. The patient was in her usual status of health up until last night. She started having severe abdominal pain. She says she went up and went to the bathroom and she was having severe pelvic pain. She came to the emergency room because of the acuity of the pain. A CT scan of the abdomen and pelvis was performed which showed a 5.1 cm solid mass in the central pelvis which is separate from the uterus and ovaries. There is also loculated fluid noted in the pelvis posterior to this mass as measured above with some free fluid and a right ovarian cyst. The patient has a history of supracervical hyste[place] [address] Bridgette Weller. This was done because of the fibroid uterus. The patient is now admitted to the hospital. I have been asked to see the patient for evaluation of the pelvic mass. The patient is seen in the emergency room. She is very tender in the suprapubic area. She denies any nausea, vomiting, or diarrhea. She denies any headaches or dizziness. The rest of the review of systems is negative. PAST MEDICAL HISTORY 1. Noninvasive right breast cancer 2. Anxiety disorder 3. Diabetes mellitus 4. Hypercholesterolemia PAST SURGICAL HISTORY 1. Breast implants 2. Breast biopsy 3. Supracervical partial hysterectomy 4. 5. Appendectomy ALLERGIES LATEX MEDICATIONS 1. Atorvastatin 2. Metformin 3. Tamoxifen FAMILY HISTORY The patient's parents are alive and well. The patient does not have any siblings. She has one son and one daughter both are alive and well. SOCIAL HISTORY The patient is . She smokes cigarettes occasionally. She also drinks alcohol occasionally. 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 PHYSICAL EXAM This a well-developed, well-nourished female in no apparent distress. VITAL SIGNS: Temperature 97.8, heart rate is 85, blood pressure 118/67, O2 saturation 100% on two liters nasal cannula. HEENT: PERRLA, EOMI, anicteric. No oral lesions noted. NECK: Supple. There is no cervical, supraclavicular or axillary lymphadenopathy noted. LUNGS: Clear. No wheezing, rhonchi or rales. HEART: Regular rate and rhythm. ABDOMEN: Soft and nontender. No hepatosplenomegaly. EXTREMITIES: No pedal edema. ABDOMEN: Soft, tenderness noted in the suprapubic area. EXTREMITIES: No pedal edema. NEUROLOGIC: Awake, alert, and oriented times three. SKIN: No significant lesions are noted. ASSESSMENT 1. Noninvasive right breast cancer diagnosed in June of this year status post lumpectomy and radiation currently on tamoxifen with no evidence of metastatic disease. 2. Solid pelvic mass which is very tender and painful. I suspect this could be ovarian torsion or some neoplasm. PLAN I have reviewed her available records and I have discussed with the patient regarding the CT scan of the abdomen and pelvis findings. The patient has a 5.1 large solid tender mass in the central pelvis. She has a history of supracervical hysterectomy. She still has her cervix and the ovaries. She is in a lot of pain. I suspect that we may be dealing with torsion. I recommended that he should consulted [facility] [employer] oncology for further evaluation. I have placed a consult for Dr. Hanna Sierra to see her. I will order the tumor markers, CEA and CA-125. Further recommendations based on the hospital stay. Thank you for asking my opinion. MD TRI Marcus/LIZ /6:03 AM 7:03 AM
[2017-02-12 08:00] VITALS: BP 110/65; PULSE 88; RESP 18; TEMP 99.1; O2SAT 100
[2017-02-12 08:23] LABS: AUTOMATED NEUTROPHIL # 8.5 TH/MM3 (1.8-7.7); BASOPHIL % 0.2 % (0.0-2.0); EOSINOPHIL % 0.3 % (0.0-4.0); HEMATOCRIT 31.7 % (35.0-46.0); HEMO FLAGS DIFF FINAL; LYMPH % 7.9 % (9.0-44.0); LYMPHOCYTE # 0.8 TH/MM3 (1.0-4.8); MEAN CELL VOLUME 91.1 FL (80.0-100.0); MEAN CORPUSCULAR HEMOGLOBIN 30.6 PG (27.0-34.0); MEAN CORPUSCULAR HGB CONC 33.6 % (32.0-36.0); NEUT % 79.6 % (16.0-70.0); PLATELET COUNT 114 TH/MM3 (150-450); RED BLOOD COUNT 3.48 MIL/MM3 (4.00-5.30); WHITE BLOOD COUNT 10.7 TH/MM3 (4.0-11.0)
[2017-02-12] MEDS: TAMOXIFEN CITRATE 10 MG TAB PO SCH (08:25)
[2017-02-12] MEDS: oxyCODONE/ACETAMINOPHEN 5 MG/325 MG TAB PO PRN ×2 (08:26→12:38)
[2017-02-12] MEDS: D5-1/2 NS + KCL 20 MEQ INJ 1,000 ML IV SCH (08:27)
[2017-02-12 08:37] VITALS: O2SAT 98
[2017-02-12] MEDS: SODIUM CHLORIDE 0.9% FLUSH 10 ML FLUSH IV FLUSH SCH (08:44)
[2017-02-12 09:09] LABS: BICARBONATE 24.7 MEQ/L (21.0-32.0); POTASSIUM 3.8 MEQ/L (3.5-5.1)
[2017-02-12 12:00] VITALS: BP 98/62; PULSE 103; RESP 20; TEMP 99; O2SAT 95
--- NOTE | 2017-02-12 12:19 | HHI.PR ---
Subjective Subjective Remarks went for surgery yesterday, s/p lap with davince robot pelvic res. partial omentectomy bilat S&O abd. tender tolerating diet well no n/v no fever anxious to go home Review of Systems Constitutional Constitutional Remarks 12 point ros completed, negative except as noted above Vitals/Results Vital Signs Vital Signs Date Time Temp Pulse Resp B/P (MAP) Pulse Ox O2 Delivery O2 Flow Rate FiO2 02/12/17 08:37 98 21 02/12/17 08:00 99.1 88 18 110/65 (80) 100 02/12/17 04:56 20 02/12/17 04:00 97.8 85 18 118/67 (84) 100 02/12/17 00:00 97.0 87 18 117/64 (81) 100 02/11/17 20:30 91 12 121/59 (79) 100 Nasal Cannula 2 02/11/17 20:00 96.9 92 18 125/72 (89) 100 02/11/17 20:00 90 13 128/59 (82) 100 Nasal Cannula 2 02/11/17 19:45 91 14 119/55 (76) 100 Nasal Cannula 2 02/11/17 19:30 94 12 131/57 (81) 100 Nasal Cannula 2 02/11/17 19:15 100 13 113/55 (74) 100 Nasal Cannula 2 02/11/17 19:06 98.3 110 21 128/60 (82) 100 Nasal Cannula 4 02/11/17 13:00 99.1 86 20 117/57 (77) 98 CBC/BMP: 02/12/17 0733 02/12/17 0733 Lab Results Laboratory Tests Test 02/12/17 07:33 White Blood Count 10.7 TH/MM3 Red Blood Count 3.48 MIL/MM3 Hemoglobin 10.6 GM/DL Hematocrit 31.7 % Mean Corpuscular Volume 91.1 FL Mean Corpuscular Hemoglobin 30.6 PG Mean Corpuscular Hemoglobin Concent 33.6 % Red Cell Distribution Width 13.0 % Platelet Count 114 TH/MM3 Mean Platelet Volume 7.4 FL Neutrophils (%) (Auto) 79.6 % Lymphocytes (%) (Auto) 7.9 % Monocytes (%) (Auto) 12.0 % Eosinophils (%) (Auto) 0.3 % Basophils (%) (Auto) 0.2 % Neutrophils # (Auto) 8.5 TH/MM3 Lymphocytes # (Auto) 0.8 TH/MM3 Monocytes # (Auto) 1.3 TH/MM3 Eosinophils # (Auto) 0.0 TH/MM3 Basophils # (Auto) 0.0 TH/MM3 CBC Comment DIFF FINAL Differential Comment Blood Urea Nitrogen 7 MG/DL Creatinine 0.52 MG/DL Random Glucose 132 MG/DL Calcium Level 7.5 MG/DL Sodium Level 138 MEQ/L Potassium Level 3.8 MEQ/L Chloride Level 107 MEQ/L Carbon Dioxide Level 24.7 MEQ/L Anion Gap 6 MEQ/L Estimat Glomerular Filtration Rate 126 ML/MIN Physical Exam General General Appearance: Well Developed, Well Nourished, No Acute Distress, Comfortable Eyes Eye Exam: Pupils Equal, Pupils Reactive Ears & Nose Ears & Nose Exam: Nasal Mucosa [place] Throat Throat Exam: Oral Mucosa [place] & Moist Neck Neck Exam: Neck Supple, Trachea Midline Pulmonary Resp Exam: Clear Bilaterally, No Distress Cardiology CV Exam: Regular, Good Perfusion Gastrointestinal/Abdomen GI Exam: Soft, Non-Distended, Bowel Sounds Hypoactive GI Remarks lap incisions intact Musculoskeletal MS Exam: Joints Intact Integumentary Skin Exam: Warm, Dry Extremeties Extremities Exam: No Edema, Pedal Pulses Palpable Neurologic Neuro Exam: Alert, Awake, Oriented, Speech Clear, Moving All Extremities, No Focal Deficits Psychiatric Psych Exam: Appropriate Responses VTE Prophylaxis VTE Prophylaxis Device: SCDs Assessment/Plan Problem List: (1) Pelvic mass ICD Codes: R19.00 - Intra-abdominal and pelvic swelling, mass and lump, unspecified site Status: Acute (2) Pelvic pain in female ICD Codes: R10.2 - Pelvic and perineal pain Status: Acute (3) Hyperlipidemia ICD Codes: E78.5 - Hyperlipidemia, unspecified Status: Chronic (4) Diabetes 1.5, managed as type 2 ICD Codes: E10.9 - Type 1 diabetes mellitus without complications Status: Chronic (5) Breast cancer, right ICD Codes: C50.911 - Malignant neoplasm of unspecified site of right female breast Status: Acute (6) History of lumpectomy of right breast ICD Codes: Z90.11 - Acquired absence of right breast and nipple Status: Chronic Assessment/Plan 46-year-old white female admitted with abdominal pain, CT of the abdomen and pelvis showing 5.1 cm solid mass in the central pelvis separate from uterus and ovaries, loculated fluid in the pelvis posterior to this mass, free fluid in right ovarian cyst, 7.1 x 5.3 cm area of solid tissue posterior to the bladder which could represent the uterus. s/p lap with da diann robot pelvic res. partial omentectomy bilat S&O 02/11 -appreciate Dr. Sierra input -Dr. Benjamin following as well -continue post op well -Pain management -tolerating diet well -Enc. IS, ambulate Right breast cancer, underwent lumpectomy. Completed radiation September 2016 and is currently on tamoxifen -Dr. Benjamin following -cancer markers okay Type 2 diabetes -Accu-Cheks before meals and at bedtime with insulin therapy Hyperlipidemia, stable -hold for now Thrombocytopenia -plat down to 114 today, from 142 SCDs for DVT prophylaxis Repeat CBC in am inc. ambulation will keep one more day to monitor platelets D/W RN D/W pt D/W Dr. Bloom This patient was seen by myself and Dr. Bloom, this note is written on his behalf Problem Qualifiers (1) Hyperlipidemia: Qualified Codes: E78.5 - Hyperlipidemia, unspecified (2) Breast cancer, right: Qualified Codes: C50.911 - Malignant neoplasm of unspecified site of right female breast; Z17.0 - Estrogen receptor positive status [ER+] Ambreen Garcia Feb 12, 2017 12:19
[2017-02-12 16:00] VITALS: BP 105/64; PULSE 107; RESP 14; TEMP 98.3; O2SAT 98
--- NOTE | 2017-02-12 16:13 | PD.ONC.PN ---
Subjective Subjective Remarks Afebrile Doing well after surgery Very minimal pain Objective Data Date Time Temp Pulse Resp B/P (MAP) Pulse Ox O2 Delivery O2 Flow Rate FiO2 02/12/17 12:00 99.0 103 20 98/62 (74) 95 02/12/17 08:37 98 21 02/12/17 08:00 99.1 88 18 110/65 (80) 100 02/12/17 04:56 20 02/12/17 04:00 97.8 85 18 118/67 (84) 100 02/12/17 00:00 97.0 87 18 117/64 (81) 100 02/11/17 20:30 91 12 121/59 (79) 100 Nasal Cannula 2 02/11/17 20:00 96.9 92 18 125/72 (89) 100 02/11/17 20:00 90 13 128/59 (82) 100 Nasal Cannula 2 02/11/17 19:45 91 14 119/55 (76) 100 Nasal Cannula 2 02/11/17 19:30 94 12 131/57 (81) 100 Nasal Cannula 2 02/11/17 19:15 100 13 113/55 (74) 100 Nasal Cannula 2 02/11/17 19:06 98.3 110 21 128/60 (82) 100 Nasal Cannula 4 02/12/17 02/12/17 02/12/17 07:00 15:00 23:00 Intake Total 598 ml Output Total 1100 ml 300 ml Balance -1100 ml 298 ml Result Diagram: 02/12/17 0733 02/12/17 0733 Laboratory Results Laboratory Tests Test 02/12/17 07:33 White Blood Count 10.7 TH/MM3 Red Blood Count 3.48 MIL/MM3 Hemoglobin 10.6 GM/DL Hematocrit 31.7 % Mean Corpuscular Volume 91.1 FL Mean Corpuscular Hemoglobin 30.6 PG Mean Corpuscular Hemoglobin Concent 33.6 % Red Cell Distribution Width 13.0 % Platelet Count 114 TH/MM3 Mean Platelet Volume 7.4 FL Neutrophils (%) (Auto) 79.6 % Lymphocytes (%) (Auto) 7.9 % Monocytes (%) (Auto) 12.0 % Eosinophils (%) (Auto) 0.3 % Basophils (%) (Auto) 0.2 % Neutrophils # (Auto) 8.5 TH/MM3 Lymphocytes # (Auto) 0.8 TH/MM3 Monocytes # (Auto) 1.3 TH/MM3 Eosinophils # (Auto) 0.0 TH/MM3 Basophils # (Auto) 0.0 TH/MM3 CBC Comment DIFF FINAL Differential Comment Blood Urea Nitrogen 7 MG/DL Creatinine 0.52 MG/DL Random Glucose 132 MG/DL Calcium Level 7.5 MG/DL Sodium Level 138 MEQ/L Potassium Level 3.8 MEQ/L Chloride Level 107 MEQ/L Carbon Dioxide Level 24.7 MEQ/L Anion Gap 6 MEQ/L Estimat Glomerular Filtration Rate 126 ML/MIN Administered Medications Medications (Trade) Dose Ordered Sig/Yoli Route PRN Reason Start Time Stop Time Status Last Admin Dose Admin Acetaminophen (Tylenol) 650 mg Q4H PRN PO TEMP > 100.4 02/11/17 04:00 02/11/17 12:57 Morphine Sulfate (Morphine Inj) 5 mg Q3H PRN IV PUSH PAIN SCALE 6 TO 10 02/11/17 04:00 02/11/17 08:53 Atorvastatin Calcium (Lipitor) 20 mg HS PO 02/11/17 21:00 02/11/17 21:44 Tamoxifen Citrate (Nolvadex) 10 mg BID PO 02/11/17 21:00 02/12/17 08:25 Sodium Chloride (NS Flush) 2 ml BID IV FLUSH 02/11/17 21:00 02/11/17 21:45 Ketorolac Tromethamine (Toradol Inj) 30 mg Q6H IVP 02/11/17 22:00 02/12/17 16:01 02/12/17 08:45 Oxycodone/ Acetaminophen (Percocet 5-325 Mg) 1 tab Q4H PRN PO PAIN SCALE 1 TO 5 02/11/17 19:15 02/12/17 12:38 Objective Remarks GENERAL: Well-appearing younger female, resting in bed watching TV in no acute distress. SKIN: Warm and dry. Bandages to abdomen from laparoscopic surgery. HEAD: Normocephalic. EYES: No injection or drainage. NECK: Supple, trachea midline. CARDIOVASCULAR: +S1/S2. No murmur noted. RESPIRATORY: Breath sounds equal bilaterally. No accessory muscle use. GASTROINTESTINAL: Abdomen soft, mildly tender to palpation. Bandages in place. EXTREMITIES: No cyanosis, or edema. NEUROLOGICAL: No obvious focal deficit. Awake, alert, and oriented x3. Assessment/Plan Problem List: (1) Pelvic mass ICD Codes: R19.00 - Intra-abdominal and pelvic swelling, mass and lump, unspecified site Status: Acute Plan: 02/12/17: Pt doing extremely well post-op. Will await results of pathology. Followup in clinic with Dr Benjamin as scheduled on the . -- 5.1cm solid mass found in the central pelvis -- Dr Sierra performed surgery on 02/11. -- Pathology pending. (2) Breast cancer, right ICD Codes: C50.911 - Malignant neoplasm of unspecified site of right female breast Status: Chronic Plan: -- On Tamoxifen Assessment 46 y/o female with history of breast cancer presents with pelvic pain and found to have a 5.1cm pelvic mass. Attending Statement pain resolved after the surgery Path is pending Ok to d/c FU as outpt The exam, history, and the medical decision-making described in the above note were completed with the assistance of the mid-level provider. I reviewed and agree with the findings presented. I attest that I had a [id number] encounter with the patient on the same day, and personally performed and documented my assessment and findings in the medical record. Problem Qualifiers (1) Breast cancer, right: Qualified Codes: C50.911 - Malignant neoplasm of unspecified site of right female breast; Z17.0 - Estrogen receptor positive status [ER+] Erma Arana Feb 12, 2017 16:13 Maci Benjamin MD Feb 12, 2017 18:12
--- NOTE | 2017-02-14 19:11 | MP ---
cc: ESTEBAN VARELA M.D., DAVID G. M.D. MOLPUS, KELLY L. MD ANWER,OTTO MOTA,KIM Epps MD DATE OF SURGERY: 02/11/2017. PREOPERATIVE DIAGNOSIS: 1. Multilobulated pelvic mass (versus multiple pelvic masses). 2. Ovarian torsion. 3. Acute abdominal pain. POSTOPERATIVE DIAGNOSIS: 1. Bilateral adnexal masses. 2. Torsed and necrotic distal omentum. 3. Diffuse inflammation, tissue edema and extensive pelvic adhesions. OPERATIVE PROCEDURE PERFORMED: Robotic-assisted laparoscopic bilateral salpingo-oophorectomy and distal omentectomy with resection of necrotic mass, left ureterolysis and extensive lysis of adhesions. SURGEON: Hanna Sierra MD. DIRECTOR CLINICAL DATA: Thania primary teaching assistant. ANESTHESIA: General endotracheal anesthesia. ESTIMATED BLOOD LOSS: 200 mL. IV FLUIDS: 2000 mL. URINE OUTPUT: 250 mL HISTORY: 46-year-old female presented to the emergency room with acute onset of pain at approximately 01:00 a.m. on the date of the admission. The pain persisted and was in the lower midabdomen and pelvic region. Exam findings were consistent with an acute abdomen. Pelvic CT scan and ultrasound were reviewed. The anatomy was abnormal and difficult at some levels to interpret. There were cystic as well as solid masses. By history, she had had a supracervical hysterectomy and the cervix remained intact and was seen and measured but there was a solid mass measuring 6 cm as well as cystic masses in the pelvis and diffuse edema. It was difficult to clarify the origin and extent of these changes. She was counseled as the preoperative expectation was that of ovarian torsion because of an ovarian mass. She was absolutely in favor of surgery and anything that could help improve how she was feeling. She understood that we may need to remove both tubes and ovaries if they appeared abnormal and appeared to possibly be involved in the process causing her pain. We discussed the menopausal ramifications of this. However, with her history of noninvasive estrogen receptor positive breast cancer, there may be also some therapeutic and prophylactic advantage of having the tubes and ovaries removed from a cancer standpoint and it was agreed that only if one of the ovaries looked completely normal would we retain it otherwise she agreed with bilateral salpingo-oophorectomy. She was seen in followup counseling in the emergency room and again in the preop holding area where these discussions were held. She also understands that our objective is try to accomplish surgery laparoscopically, but may need to convert to laparotomy and she agreed. FINDINGS: In the pelvis, there was a dense adherence to multilobulated masses from the adnexa densely adherent to the pelvic sidewalls and in the cul-de-sac with the omentum draped and the distal omentum scarred in the pelvis with approximately 6 cm mass seemingly arising from the omentum of necrotic tissue although the anatomy could not be clarified until well into the dissection as it was initially thought that this represented a torsed necrotic ovary and the adhesions were extensive, the uterus was surgically absent and there was a prominent cervix that measured to a depth of 5 cm. Preliminary pathology of the tissue once removed, confirmed complete necrosis of the omental tissue. The adnexal masses on preliminary assessment appeared benign with final pathology pending. In the peritoneal cavity, there were no appreciably enlarged lymph nodes. The liver / diaphragm edges were smooth. The large and small bowel and adjacent mesentery were without implants. STATEMENT OF COMPLEXITY / MODIFIER: The extensive dense widespread adhesions in this case increased the complexity and the duration of this dissection significantly and the modifier should be applied accordingly. DESCRIPTION OF THE PROCEDURE IN DETAIL: The patient was taken to the operating room and placed in the dorsal lithotomy position after general endotracheal anesthesia was administered. A time-out was undertaken, she was identified by sight recognition and hospital ID bracelet and the proposed procedure was reviewed and confirmed. She was carefully positioned in padded Hua stirrups. Her arms were padded and secured to the sides. She was further secured to the operating table with egg crate padding and tape in a cross-chest [id number] fashion. All sites were noted be properly aligned with no malalignments or pressure points. She was prepped and draped in sterile fashion and placed in high lithotomy position. The cervix was grasped. It was sounded and the cervix sounded to a depth of 5 cm and the V-Care manipulator was inserted and secured in the usual fashion. Benitez catheter placed in the bladder. Prior to placement all of this, an exam noted that the cervix was circumferentially smooth and there was no grossly visible or palpable abnormality on the cervix; however, endocervical curetting was performed just because the cervix itself was prominent and there was a normal amount of tissue obtained and this was sent for histopathologic analysis. She was returned to dorsal supine position and change to sterile gloves was undertaken. We completed draping in anticipation of laparoscopy and confirmed that an orogastric tube was in the stomach on suction. With manual elevation of the abdominal wall and direct laparoscopic visualization, a 5-mm cannula was introduced into the left upper quadrant. Carbon dioxide gas was insufflated and an atraumatic entry was confirmed. An 8-mm cannula was placed in the right upper quadrant. She was placed in Trendelenburg position. Graspers were used to survey the anatomy to try to understand the findings and determine if this could be approached laparoscopically. Multilobulated masses with the adhesions and omental scarring were noted as well as the edge of the necrotic mass could be seen but it was felt that it could be addressed laparoscopically. Accordingly, a 12-mm cannula was placed in midline above the umbilicus and another 8 mm cannula placed in the left lateral quadrant as the original 5 was exchanged for an 8 mm cannula. She was placed in steep Trendelenburg position. Peritoneal washings were obtained for cytology. The small bowel was folded back on the mesenteric root to the extent possible but dense adhesions precluded a lot of the mobilization. Three Ray-Yg sponges were placed around the root of the small bowel mesentery. The robotic system was brought into the operative field and attached in the usual fashion. Monopolar scissors, fenestrated bipolar forceps and Prograsp manipulators were placed in arms numbers one, two and three, respectively, and I took my place at the surgeon's console. Lysis of adhesions was initiated with sharp dissection as the ileocecal section of the small bowel and colon were adherent to the right lateral and right anterior abdominal wall with much surrounding adhesions likely consistent to her history of appendicitis and loops of ileum were adherent to the fallopian tube and ovary on the right side as the ileum was drawn down into the pelvis and all this was covered with omentum. Sharp dissection allowed mobilization of the cecum and the ileum and sharp dissection was used to dissect the ileum off of its attachment to the right adnexal structures and to mobilize the ileocecal region above the pelvic brim. The omentum was freed from its attachments overlying the right pelvic structures. An avascular portion of the omentum was isolated, cauterized and transected from the right lateral sidewall moving medially until the right adnexal structures could be more clearly visualized. The residual right round ligament was identified, isolated, cauterized. The anterior portion leafs of the broad ligament were opened. Retroperitoneal dissection allowed identification of the ureter and dissection distally to mobilize the ovary, isolated the right utero-ovarian ligament and now it was noted that there was a paratubal mass that appeared solid with a paratubal cyst as well as the ovary, all edematous and the dissection was from distal to proximal as the peritoneum underlying the adnexa and gonadal vessels was opened. The infundibulopelvic ligament was isolated to the level of the pelvic brim where it was now cauterized and transected thereby removing the right tube and ovary, which were placed in the left pericolic gutter for later retrieval. Attention was directed toward the left side where adhesions were taken down to mobilize the colon which was adherent to the left pelvic sidewall and to mobilize the omentum to better visualize the left adnexal structures. The left round ligament remnant was isolated, cauterized and transected and the anterior and posterior leafs of the broad ligament were developed. The ureter was densely adherent to the posterolateral aspect of the left adnexa and sharp dissection was used to free the ureter along its course and to separate the adhesions along the course to mobilize the ureter and to release it from its adherence and adhesions. Proximal dissection allowed isolation of the gonadal vessels which were isolated to the level of the pelvic brim where they were cauterized and transected. Dissection was continued from proximal to distal freeing the adhesions around the adnexa where there was approximately a 5 cm cyst as well as approximately a 3 cm solid component coming off the fallopian tube. All tissues were edematous. Dissection continued until the residual left utero-ovarian ligament was isolated, cauterized and transected and the left adnexa were placed in the left pericolic gutter for later retrieval. Additional dissection of the omentum was carried now starting more from the left side and dissecting medially. The vascular pedicles were isolated, cauterized and transected in a stepwise fashion until the omentum was transected to allow better visualization to the central necrotic pelvic mass which now became clear that this was actually torsed necrotic omentum. There was estimated 2-1/2 full twists of what appeared to be the middle omental artery (900 degrees) of torsion leading directly into a 6 cm black very firm mass of necrotic tissue. This was loosely adherent overlying the rectum and mesentery which was able to be dissected off the rectum with sharp and blunt dissection. The additional adhesions distally were taken down with sharp dissection and once removed, this was placed in the left pericolic gutter for later retrieval. Approximately a 1 cm nodule was noted on the posterior edge of the cervix, also edematous and grossly appeared to be a leiomyoma and the base of this was cauterized and transected, placed in the left pericolic gutter for later retrieval. The pelvis was thoroughly irrigated. Small bleeders were rendered hemostatic with bipolar cautery. Surgicel was placed over the dissection planes on the rectosigmoid as well as against the right and left pelvic sidewalls and cul-de-sac and hemostatic David was placed throughout the dissection areas with satisfactory hemostasis. The anatomy had essentially been returned to normal. All adhesions were lysed and all abnormal tissue had been removed and pending the pathology it was felt that all reasonable surgical objectives had been completed. The robotic instruments were removed. The robotic system was disengaged from the operative field. I reentered bedside under sterile condition. The 1 cm leiomyoma was grasped and removed through the 12-mm cannula. Each of the three Ray-Yg sponges that had been placed in the peritoneal cavity were isolated, grasped and removed through the 12-mm cannula. Each were inspected and noted to be removed in their entirety. EndoCatch bags were then introduced after the fascial incision of the 12-mm cannula site was extended with sharp dissection and the cannula was exchanged for a 15-mm cannula. 15 cm EndoCatch bags were used to capture the right tube and ovary and the left tube and ovary and then the omentum with the necrotic mass. These were delivered contained within the bag required some sharp dissection or blunt dissection at the field to reduce the size and allow them to be delivered laparoscopically. Inspection confirmed there were no remaining foreign objects in the peritoneal cavity. Preliminary counts were correct. All sites were hemostatic and attention was directed toward closing with the overall appearance suggestive of probable benign disease. The 12 mm cannula was closed with interrupted 0 Vicryl sutures using a needle passer apparatus. The sutures were tied securely which rendered the fascia completely airtight and hemostatic. The remaining cannulas were withdrawn. Carbon dioxide gas was removed from the peritoneal cavity. 3-0 Vicryl subcutaneous and 3-0 Vicryl subcuticular and Steri-Strips were used to close these incisions. She was returned to the dorsal lithotomy position. The V-Care manipulator was removed. Sutures were cut and the site was rendered hemostatic with some of the remaining David hemostatic agent and some topical silver nitrate. There were no remaining foreign objects in the vagina. Final counts were correct. She was returned to dorsal supine position and pending reversal of anesthesia when I left the operating room to precede her to the post-anesthesia care unit. MD AUSTIN Barber/MIGUEL /7:20 AM /6:42 PM
--- NOTE | 2017-02-16 20:40 | HHI.DS ---
Discharge Summary Admission Date Feb 11, 2017 at 19:04 Discharge Date: Feb 12, 2017 Admitting Diagnosis pelvic mass, pelvic pain, history of breast cancer (1) Pelvic mass ICD Codes: R19.00 - Intra-abdominal and pelvic swelling, mass and lump, unspecified site Status: Acute (2) Pelvic pain in female ICD Codes: R10.2 - Pelvic and perineal pain Status: Acute (3) Hyperlipidemia ICD Codes: E78.5 - Hyperlipidemia, unspecified Status: Chronic (4) Diabetes 1.5, managed as type 2 ICD Codes: E10.9 - Type 1 diabetes mellitus without complications Status: Chronic (5) Breast cancer, right ICD Codes: C50.911 - Malignant neoplasm of unspecified site of right female breast Status: Chronic (6) History of lumpectomy of right breast ICD Codes: Z90.11 - Acquired absence of right breast and nipple Status: Chronic Procedures DATE OF SURGERY: 02/11/2017. OPERATIVE PROCEDURE PERFORMED: Robotic-assisted laparoscopic bilateral salpingo-oophorectomy and distal omentectomy with resection of necrotic mass, left ureterolysis and extensive lysis of adhesions. CBC/BMP: 02/12/17 0733 02/12/17 0733 Imaging Last Impressions Pelvis Ultrasound 02/11/17 1152 Signed Impressions: Service Date/Time: January 11:49 - CONCLUSION: Soft tissue mass in addition to septated cystic masses extending from midline into the left adnexa could all be related to the patient's left ovary. Flow is documented within the right ovary, however normal left ovarian tissue is not visualized and possibility of left ovary filled with cystic and solid masses and possibly torsion should also be entertained. Brennan Berrios MD Abdomen/Pelvis CT 02/11/17 0149 Signed Impressions: Service Date/Time: January 02:48 - CONCLUSION: 1. 5.1 cm solid mass in the central pelvis which is separate from the uterus and ovaries. There is also loculated fluid in the pelvis posterior to this mass as measured above with some free fluid and right ovarian cyst. Reportedly there is a history of metastatic breast carcinoma. Small amount of free fluid also present around the spleen and left paracolic gutter. 2. There is a 7.1 x 5.3 cm area of solid tissue posterior to the bladder which could represent the uterus although there is a history of hysterectomy and this could represent an additional pelvic mass suspicious for neoplasm. 1. 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 Patient presented to the emergency room for evaluation of abdominal pain. Patient indicates that the pain started about 2 nights ago, it woke her from sleep. Pain is located to the lower abdomen and radiates to the back it is a 10 obtained. At times it comes in waves and increases with changes in position. She denies any nausea, no vomiting, no diarrhea. Has not had a bowel movement in 2 days but denies any symptoms of constipation. When she urinates she feels pelvic pressure. No recent fever, no chills. Denies any vaginal discharge. She does have prior history of Assisted hysterectomy in 2006. In the emergency room, patient was evaluated. Laboratory workup was essentially unremarkable. A CT of the abdomen and pelvis was completed that showed a 5.1 cm solid mass in the central pelvis which is separate from the uterus and ovaries. There is also loculated fluid in the pelvis posterior to this mass as measured above with some free fluid in right ovarian cyst. There is a 7.1 x 5.3. Solid tissue posterior to the bladder which could represent a uterus although there is a history of hysterectomy and this could represent an additional pelvic mass is patient is of neoplasm. She was recently diagnosed with right breast cancer April 2016 and underwent a lumpectomy per . She had just completed radiation and had been started on tamoxifen. Dr. Benjamin had been consulted and has evaluated patient. He requested consultation with Dr. Sierra and ordered cancer markers. Patient was admitted for further evaluation and treatment. (1) Pelvic mass ICD Codes: R19.00 - Intra-abdominal and pelvic swelling, mass and lump, unspecified site Status: Acute (2) Pelvic pain in female ICD Codes: R10.2 - Pelvic and perineal pain Status: Acute (3) Hyperlipidemia ICD Codes: E78.5 - Hyperlipidemia, unspecified Status: Chronic (4) Diabetes 1.5, managed as type 2 ICD Codes: E10.9 - Type 1 diabetes mellitus without complications Status: Chronic (5) Breast cancer, right ICD Codes: C50.911 - Malignant neoplasm of unspecified site of right female breast Status: Acute (6) History of lumpectomy of right breast ICD Codes: Z90.11 - Acquired absence of right breast and nipple Status: Chronic Assessment/Plan 46-year-old white female admitted with abdominal pain, CT of the abdomen and pelvis showing 5.1 cm solid mass in the central pelvis separate from uterus and ovaries, loculated fluid in the pelvis posterior to this mass, free fluid in right ovarian cyst, 7.1 x 5.3 cm area of solid tissue posterior to the bladder which could represent the uterus. -consulted Dr. Sierra and Sourav -given IVF, NPO status, pain management. -Surgery recommended-s/p lap with da diann robot pelvic res. partial omentectomy bilat S&O 02/11 -did well post op, no fever, tolerated diet. -Enc. IS, ambulate -cleared by surgeon for dc Right breast cancer, underwent lumpectomy. Completed radiation September 2016 and is currently on tamoxifen -Dr. Benjamin followed -cancer markers okay Type 2 diabetes -Accu-Cheks before meals and at bedtime with insulin therapy Hyperlipidemia, stable -held Thrombocytopenia -plat down to 114 after surgery, from 142 -no bleeding -to f/u as OP with oncology Stable for dc pain well controlled Discharged home in stable condition Instructed to f/u Dr. Sierra Diet-diabetic Activity-no work, no lifting, Wound care-per Dr. Sierra directions Pt Condition on Discharge: Stable Discharge Disposition: Discharge Home Discharge Instructions DIET: Follow Instructions for: As Tolerated, No Restrictions Activities you can perform: See Additionl Instruction Activities to Avoid: Strenuous Activity, Bathing, Shower, Driving Follow up Referrals: Oncology - 2 Weeks with tony PCP Follow-up - 1 Week New Medications: Oxycodone-Acetaminophen (Oxycodone-Acetaminophen) 5-325 mg Tab 1 TAB PO Q4H PRN for PAIN GREATER THAN 5, #40 TAB Continued Medications: Atorvastatin (Atorvastatin) 20 Mg Tab 20 MG PO HS for Cholesterol Management, #30 TAB 0 Refills Tamoxifen (Tamoxifen) 10 Mg Tab 10 MG PO BID for Chemotherapy Management, #60 TAB 0 Refills Ambreen Garcia Feb 16, 2017 20:40
--- NOTE | 2017-02-16 21:16 | MD ---
cc: ESTEABN VARELA M.D.,BHAVYA MORAN M.D., MD,OTTO MOTA,KIM Epps MD ADMISSION DATE: 02/11/2017 DISCHARGE DATE: 02/12/2017 PROCEDURE 02/11/2017 laparoscopic bilateral salpingo-oophorectomy, partial omentectomy with resection of torsed, necrotic omentum, left ureterolysis and extensive lysis of adhesions. HOSPITAL COURSE She did well in the early postop period. She had presented acutely requiring urgent surgical intervention. The acute pain has resolved. She has discomfort now consistent with surgery. OBJECTIVE Ins and outs 2240/1650. Labs are pending. Vital signs, afebrile, pulse 85-91, respirations now 18-20, blood pressure 117-128 over 59-67, O2 saturations 100% PHYSICAL EXAMINATION GENERAL: Alert, oriented x3 in no acute distress. LUNGS: Are clear. CARDIOVASCULAR: Regular rate and rhythm. ABDOMEN: Incisions clean and dry. The midline lower abdominal acute pain is resolved. She has some tenderness consistent with surgery. GYNECOLOGIC: No bleeding. EXTREMITIES: Nontender. ASSESSMENT Postop day #1. Findings, preliminary pathology steps taken in surgery discussed and reviewed. Activities restrictions reviewed. Questions were answered. She expressed good understanding. PLAN Anticipate she will meet criteria for discharge to home. Our office number is provided. She is to contact our office to schedule follow up in 2 weeks or to call us sooner should she have any questions or problems. She is to resume her prior medications and she will have a prescription for Percocet as needed for pain. Bhavya Sierra MD KM/KK /6:59 AM /9:08 PM
== END 2017-02-12 17:10 | disposition home or self-care (01) | DRG 743 ==
LOC: NEPE 01:19 → NEDA 03:53 → NEPFCDU 11:31 → HOCB 16:13 → OBSVTOIN 19:04 → HOCB 21:00
PROVIDERS: ADMIT Specialist; ATTEND Specialist
PROC: 0UT24ZZ Resection of Bilateral Ovaries, Percutaneous Endoscopic Approach (ICD-10-PCS; 2017-02-11)
PROC: 0DNW4ZZ Release Peritoneum, Percutaneous Endoscopic Approach (ICD-10-PCS; 2017-02-11)
PROC: 8E0W4CZ Robotic Assisted Procedure of Trunk Region, Percutaneous Endoscopic Approach (ICD-10-PCS; 2017-02-11)
PROC: 0UT74ZZ Resection of Bilateral Fallopian Tubes, Percutaneous Endoscopic Approach (ICD-10-PCS; principal; 2017-02-11 14:53)
DX: N85.8 Other specified noninflammatory disorders of uterus (principal); E11.9 Type 2 diabetes mellitus without complications; N99.4 Postprocedural pelvic peritoneal adhesions; E78.5 Hyperlipidemia, unspecified; F17.210 Nicotine dependence, cigarettes, uncomplicated; Z90.711 Acquired absence of uterus with remaining cervical stump; Z85.3 Personal history of malignant neoplasm of breast; F41.9 Anxiety disorder, unspecified
CPT/HCPCS: 74177; 76830; 76856; 80048; 80053; 81001; 82378; 82948; 83605; 83690; 84702; 85025; 86304; 86850; 86900; 86901; 86920; 88305; 88307; 88341; 88342; 94150; 96361; 96374; 96375; 96376; J0131; J0690; J1885; J2250; J2270; J2370; J2405; J2710; J3010; J3480; J7030; J7120; Q9967